=== PATIENT | male | born 1965 | race Caucasian/White ===

== ENCOUNTER 2018-04-17 10:38 | Inpatient (IN) | payer OTHER ==
[2018-04-17] VITALS (10 sets, daily range): BP systolic 108–133; BP diastolic 70–86
[~2018-04-17] VITALS: Ht 177.8 cm; Wt 123.0 kg
--- NOTE | ~2018-04-17 | EKG ---
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: : 1965 Requested By: Dean Matta Order Number: [id number] MD: Pako Adamson Measurements Intervals [place] Rate: 66 P: 24 GA: 196 QRS: 15 QRSD: 146 T: 33 QT: 423 QTc: 444 Interpretive Statements Sinus rhythm Right bundle branch block Compared to ECG 09/24/2012 12:57:54 No significant changes Electronically Signed On 04-17-2018 16:52:45 CDT by Pako Adamson [email or web address] <ELECTRONICALLY SIGNED> By: Pako Adamson MD, [facility] 04/17/18 1652 1041 104 Pako Adamson MD, [facility] /EPI
--- NOTE | ~2018-04-17 | CATHLAB ---
[facility] [address] [place] [address] INVASIVE PROCEDURE REPORT Name: AMBERLYONOFRE Viet Room #: 213-P [facility] IN [facility]#: [id number] Admission: 04/17/18 Attend Phys: Juarez Lester, Discharge: Date of : 65 Date of Service: 04/17/18 1504 Report #: [id number] THIS REPORT FOR: //name// APPROVED REPORT Study performed: 04/17/2018 12:04:05 Patient Details Patient Status: In-Patient Room #: The patient is a 53 year-old male Event Personnel Tye Mayorga Overlock Collar Setter, Nava Hawkins, Cecilio Blackburn, Noelle, Humaira RN RN, Bryan Fernandes RN claim review medical director Performed Art Access - R femoral artery* [id number] Initial Mod Sed Same Phys/QHP Gr5y 487894 Left Heart Cath w/or w/o Coronaries [id number] C Hemostasis w/ Mynx Indication Abnormal ECG, Chest pain Risk Factors Obesity, Cerebrovascular Disease, Hypercholesterolemia, Hypertension, Tobacco History () Procedure Narrative The patient was brought urgently to the Cardiac Catheterization Laboratory and was prepped and draped in a sterile manner. The Right Groin^ was infiltrated with 1% Lidocaine subcutaneous anesthesia. A PINNACLE 4FR Sheath #[id number] sheath was inserted into the RFA^. Coronary angiography was performed using coronary diagnostic catheters. The right coronary system was accessed and visualized with a JR 4 catheter. The left coronary system was accessed and visualized with a JL 4 catheter. The left ventricle was accessed and visualized with a Pigtail catheter. Left ventricular/Aortic Valve gradient assessed via catheter pullback. Left ventriculogram was performed in FUENTES projection. Pre-demployment femoral angiogram was performed . Closure device was deployed with a 5 Fr Mynx. The patient tolerated the procedure well and there were no complications associated with the procedure. There was no hematoma. Intraoperative Conscious Sedation [facility] [address] [place] [address] INVASIVE PROCEDURE REPORT Name: AMBERLYONOFRE Viet Room #: 213-P [facility] IN [facility]#: [id number] Admission: 04/17/18 Attend Phys: Juarez Lester, Discharge: Date of : 65 Date of Service: 04/17/18 1504 Report #: [id number] Sedation start time: 12:24 Case end Time: 12:45 Fentanyl 50 mcg Versed 1.5 mg Fluoro Time: 2.32 minutes Dose: DAP 72414.60 cGycm2 1406 mGy Contrast Type and Amount: Omnipaque 150 ml Coronary Angiography The patient's coronary anatomy is right dominant. Diagnostic Cath Left Main Patent vessel, with no flow-limiting lesions. LAD Moderate to large caliber vessel, traveling down the anterior wall and wrapping around the apex. There is mild disease in the proximal and mid segments, less than 20%. Diagonal 1 Small-caliber vessel. Circumflex Moderate size caliber vessel, minimal disease in the proximal segment. OM1 Moderate size caliber vessel, mild stenosis at the ostium, 30%. OM2 Patent vessel, with no flow-limiting lesions. Right Coronary Large, dominant vessel with no flow-limiting lesions. R PDA Patent vessel, with no flow-limiting lesions. RPLV Patent vessel, with no flow-limiting lesions. Left Ventriculography The left ventricle is normal in size with normal contractility. The left ventricular ejection fraction is estimated to be 55-60%. Hemodynamics The aortic pressure is 113/87 mmHg with a mean of 100 mmHg. The left ventricular pressure is 128/14 mmHg with a mean of mmHg. The left ventricular end diastolic pressure is 25 mmHg. Conclusion 1. Mild, nonobstructive CAD. 2. Normal LV systolic function. 3. Recommend aggressive risk factor management. <ELECTRONICALLY SIGNED> By: Tye Mayorga MD 04/17/18 1504 1504 1504 Tye Mayorga MD /INF
--- NOTE | ~2018-04-17 | EKG ---
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: : 1965 Requested By: Dean Matta Order Number: [id number] MD: Pako Adamson Measurements Intervals [place] Rate: 63 P: 22 [place]: 195 QRS: 24 QRSD: 144 T: 33 QT: 426 QTc: 437 Interpretive Statements Sinus rhythm Left atrial enlargement Right bundle branch block Compared to ECG 09/24/2012 12:57:54 No significant changes Electronically Signed On 04-17-2018 16:53:13 CDT by Pako Adamson [email or web address] <ELECTRONICALLY SIGNED> By: Pako Adamson MD, [facility] 04/17/18 1653 1052 1052 Pako Adamson MD, [facility] /EPI
[~2018-04-17 10:38] MED LIST: ADULT LOW DOSE81 MG PO; ASPIRIN EC81 M1 PO; ASPIRIN325 PO; ATENOLOL 25 MG25 M1 PO; BYSTOLIC10 MG PO; BYSTOLIC20 MG PO; CARDIZEM CD240 MG PO; CRESTOR20 MG PO; DILTIAZEM 24HR240 MG PO; DILTIAZEM ER240 M1 PO; HYDROCHLOROTHIA25 M1 PO; HYDROCHLOROTHIA25 M2 PO; LISINOPRIL20 MG PO; LISINOPRIL40 MG PO; PRILOSEC40 MG PO; VICODIN 5-5001 EACH PO; XANAX 0.5 MG0.5 M1 PO
[2018-04-17 11:03] LABS: ABSOLUTE NEUTROPHILS 4.8 thou/uL (1.4-8.2); BASOPHILS 0.8 % (0.0-2.0); EOSINOPHILS 5.1 % (0.0-3.0); HEMATOCRIT 39.7 % (42.0-52.0); MCH 29.2 pg (26.0-34.0); MCHC 35.2 g/dL (28.0-37.0); MONOCYTES 6.9 % (1.0-8.0); PLATELET COUNT 267 thou/uL (150-400); POLYS 56.2 % (36.0-66.0); RBC 4.78 mil/uL (4.50-6.00); RDW 13.6 % (10.5-14.5); WBC 8.5 thou/uL (4.0-11.0)
[2018-04-17] MEDS ORDERED: LIPITOR 20 MG T20 M1 PO (11:13)
[2018-04-17] MEDS ORDERED: ALLOPURINOL 10100 M1 PO (11:13)
[2018-04-17] MEDS ORDERED: AMLODIPINE BESY10 MG PO (11:13)
[2018-04-17] MEDS ORDERED: LIORESAL 10 MG10 MG PO (11:14)
[2018-04-17] MEDS ORDERED: CELEXA20 MG PO (11:14)
[2018-04-17] MEDS ORDERED: NEURONTIN 300300 M1 PO (11:15)
[2018-04-17] MEDS ORDERED: PEPCID20 MG PO (11:15)
[2018-04-17] MEDS ORDERED: COZAAR 25 MG TA25 M1 PO (11:15)
[2018-04-17] MEDS ORDERED: NICOTINE TRANSD21 M1 (11:16)
[2018-04-17] MEDS ORDERED: LOPRESSOR25 PO (11:16)
[2018-04-17 11:17] LABS: APTT 26.6 Seconds (24.5-32.8); PROTIME 10.2 Seconds (9.3-11.4)
[2018-04-17 11:23] LABS: ANION GAP 8 mmol/L (7-16); BUN 14 mg/dL (7-18); CALCIUM 9.2 mg/dL (8.5-10.1); CHLORIDE 102 mmol/L (98-107); CO2 27 mmol/L (21-32); CREATININE 1.2 mg/dL (0.7-1.3); GLUCOSE 106 mg/dL (74-106); SODIUM 137 mmol/L (136-145)
[2018-04-17 11:28] LABS: ALBUMIN 3.2 g/dL (3.4-5.0); MAGNESIUM 1.8 mg/dL (1.8-2.4); SGOT 18 U/L (15-37); SGPT 31 U/L (30-65); TOTAL BILIRUBIN 0.3 mg/dL (<0.1-1.0); TOTAL PROTEIN 7.3 g/dL (6.4-8.2); TROPONIN-I <0.06 ng/mL (<0.06)
[2018-04-17 12:59] LABS: CHOLESTEROL 130 mg/dL (<200); HDL CHOLESTEROL 34 mg/dL (>40); LDL CHOLESTEROL 35 mg/dL (<100); TC:HDL 3.8 Ratio (Not establshd); TRIGLYCERIDE 306 mg/dL (<150); TSH 1.932 uIU/mL (0.358-3.740); VLDL 61 mg/dL (<40)
[2018-04-18 00:45] VITALS: BP 121/80
[2018-04-18 04:38] VITALS: BP 109/64
[2018-04-18 06:31] LABS: HEMATOCRIT 39.4 % (42.0-52.0); HEMOGLOBIN 13.5 gm/dL (14.0-18.0); MCH 28.7 pg (26.0-34.0); MCHC 34.3 g/dL (28.0-37.0); MCV 83.8 fL (80.0-100.0); RBC 4.71 mil/uL (4.50-6.00); RDW 13.6 % (10.5-14.5)
[2018-04-18 07:03] LABS: CALCIUM 8.7 mg/dL (8.5-10.1); CREATININE 1.2 mg/dL (0.7-1.3); MAGNESIUM 1.9 mg/dL (1.8-2.4); POTASSIUM 4.1 mmol/L (3.5-5.1)
[2018-04-18 12:19] VITALS: BP 109/64
== END 2018-04-18 13:53 | disposition home or self-care (01) | DRG 287 ==
LOC: ER 10:38 → EROBS 11:16 → 2N 12:10 → ENTRNSPT 04-18 13:24 → EDTRNSPTSTS 04-18 13:39 → 2N 04-18 13:53
PROVIDERS: Emergency Medicine; Internal Medicine; Nurse Practitioner Adult Health
DX: R07.89 Other chest pain (principal); E66.9 Obesity, unspecified; I25.2 Old myocardial infarction; E78.00 Pure hypercholesterolemia, unspecified; I10 Essential (primary) hypertension; E78.5 Hyperlipidemia, unspecified; F32.9 Major depressive disorder, single episode, unspecified; E11.9 Type 2 diabetes mellitus without complications; I25.10 Atherosclerotic heart disease of native coronary artery without angina pectoris; Z87.891 Personal history of nicotine dependence; Z79.82 Long term (current) use of aspirin; Z86.73 Personal history of transient ischemic attack (TIA), and cerebral infarction without residual deficits; Z79.899 Other long term (current) drug therapy; Z95.5 Presence of coronary angioplasty implant and graft; Z68.38 Body mass index [BMI] 38.0-38.9, adult; Z82.49 Family history of ischemic heart disease and other diseases of the circulatory system
CPT/HCPCS: 10081